=== PATIENT | female | born 1985 | race Caucasian/White ===

== ENCOUNTER 2018-02-04 16:27 | Emergency (ER) | payer OTHER ==
[~2018-02-04] VITALS: Ht 172.7 cm; Wt 68.0 kg
[2018-02-04] MEDS ORDERED: NKM (16:49)
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
[2018-02-04] MEDS ORDERED: Acetaminophen 500mg (ES) tab ORAL ONE (18:00)
[2018-02-04 20:02] LABS: APPEARANCE,URINE CLEAR; BILIRUBIN, URINE 1+ (NEGATIVE); GLUCOSE, URINE (UA) NEGATIVE (NEGATIVE); KETONES,URINE 3+ (NEGATIVE); LEUKOCYTE ESTERASE ,URINE 2+ (NEGATIVE); NITRITE,URINE NEGATIVE (NEGATIVE); PH,URINE 6 (4.5-8.0); PROTEIN,URINE 1+ (NEGATIVE); UROBILINOGEN,URINE 4 MG/DL (0.0-1.0)
[2018-02-04 20:12] LABS: ANION GAP 9 mmol/L (5-15); BLOOD UREA NITROGEN 11 mg/dL (7-18); CALCIUM 9.7 MG/DL (8.5-10.1); CARBON DIOXIDE 29 MMOL/L (21-32); CHLORIDE 99 MMOL/L (98-107); CREATININE 0.9 MG/DL (0.55-1.30); POTASSIUM 3.6 MMOL/L (3.5-5.1); SODIUM 137 MMOL/L (136-145)
[2018-02-04 20:16] LABS: ALANINE AMINOTRANSFERASE 37 U/L (12-78); ALBUMIN 4.5 G/DL (3.4-5.0); ALBUMIN/GLOBULIN RATIO 1.2 (1.0-2.7); ALKALINE PHOSPHATASE 65 U/L (46-116); ASPARTATE AMINO TRANSFERASE 36 U/L (15-37); BASOPHILS % (AUTO) 1.1 % (0.0-2.0); BILIRUBIN,TOTAL 0.9 MG/DL (0.2-1.0); COLOR,URINE YELLOW; EOSINOPHILS % (AUTO) 1.2 % (0.0-3.0); HEMATOCRIT 44.2 % (37.0-47.0); HEMOGLOBIN 15.3 G/DL (12.0-16.0); LYMPHOCYTES % (AUTO) 25.5 % (20.0-45.0); MEAN CORPUSCULAR VOLUME 100 FL (80-99); MONOCYTES % (AUTO) 6.7 % (1.0-10.0); NEUTROPHILS % (AUTO) 65.5 % (45.0-75.0); PLATELET COUNT 206 K/UL (150-450); RED BLOOD COUNT 4.41 M/UL (4.20-5.40); RED CELL DISTRIBUTION WIDTH 10.9 % (11.6-14.8); WHITE BLOOD COUNT 7.3 K/UL (4.8-10.8)
[2018-02-04] MEDS ORDERED: TYLENOL EXTRA500 MG ORAL (21:21)
[2018-02-04] MEDS ORDERED: CEPHALEXIN500 MG ORAL (21:24)
[2018-02-04 21:28] VITALS: BP 112/70
[2018-02-04 21:29] VITALS: BP 112/70
--- NOTE | 2018-02-05 08:40 | Diagnostic Imaging Report ---
Indication: Headache, pain Technique: Continuous helical CT scanning of the head was performed without intravenous contrast material. Axial and coronal 5 mm sections were generated. Radiation dose was minimized using automated exposure control Dose: Total Dose Length Product - DLP 1382.[address] Dose Index - CTDIvol(s) 70.38 mGy. Comparison: none Findings: The ventricular system is normal in size and configuration. There is no shift of midline structures. No abnormal extra-axial fluid collections are noted. There is no evidence of intracerebral bleeding. No other abnormal high or low density areas are noted within the brain. Normal brock-white differentiation. Intact calvarium. Visualized orbits and sinuses are unremarkable Impression: Normal CT scan of the head without contrast material. This agrees with the preliminary interpretation provided overnight by [facility]. The CT scanner at [facility] is accredited by the [employer] and the scans are performed using protocols designed to limit radiation exposure to as low as reasonably achievable to attain images of sufficient resolution adequate for diagnostic evaluation.
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
== END 2018-02-04 21:29 | disposition home or self-care (01) ==
LOC: EMR 17:18
DX: S40.021A Contusion of right upper arm, initial encounter (principal); V43.52XA Car driver injured in collision with other type car in traffic accident, initial encounter; Y92.89 Other specified places as the place of occurrence of the external cause; R51 Headache; M54.2 Cervicalgia
CPT/HCPCS: 36415; 70450; 74176; 80053; 81001; 81025; 85025; 87086; 99284